=== PATIENT | male | born 1970 | race Caucasian/White ===

== ENCOUNTER → 2020-08-02 11:42 | Outpatient (CLI) | payer OTHER, SELFPAY ==
[2020-08-03 07:44] LABS: COVID19 Sendout Not Detected (Not Detect)
== END ==
PROVIDERS: Visit Provider Physician Assistant
DX: Z11.59 Encounter for screening for other viral diseases (principal)
CPT/HCPCS: 87635

== ENCOUNTER 2020-08-05 12:11 | Day surgery (SDC) | payer OTHER, SELFPAY ==
[2020-08-02 08:30] VITALS: BMI 29.9
[2020-08-05] VITALS (7 sets, daily range): BP systolic 112–151; BP diastolic 67–92; PULSE 60–76; RESP 11–18; TEMP 36.3–37.2; O2SAT 95–97; BMI 29.9
--- NOTE | 2020-08-05 13:00 | SUR.PREOP ---
Advised patient of delay in surgery. Patient verbalizes understanding and wishes to remain in waiting room for now.
[2020-08-05] MEDS: OXYMETAZOLINE NASAL SPRAY 15 ML 2 SPRAYS NASAL (14:02)
--- NOTE | 2020-08-05 14:35 | PM.PREOP ---
Pre-operative Note COVID-19 COVID-19 status: Negative Result date/Date tested (Pos, Neg/Pending): 08/02/20 Interval Note History & Physical reviewed/Exam performed by Physician: Yes Changes to H&P: No
--- NOTE | 2020-08-05 14:36 | PM.HP.1 ---
History of Present Illness History of Present Illness Date Patient Seen: 08/05/20 Time Patient Seen: 14:38 Chief complaint: Nasal airway obstruction Narrative: 50-year-old male complains of right greater than left chronic nasal obstruction with known septal deviation and inferior turbinate hypertrophy. Following discussion of the material risks benefits complications and alternatives, he elected to proceed with septoplasty and inferior turbinate reduction. Patient History Medical History Deviated septum (Acute) Hypertrophy of nasal turbinates (Acute) Sleep apnea (Acute) Tinnitus (Acute) Surgical History Hx of left knee surgery (Acute 2008) Family & Social History Social History: household members none Tobacco & Substance use: Smoking Status Former smoker alcohol intake current Substance Use Type does not use Meds Home Medications and Allergies Home Medications Medication Instructions Recorded Confirmed Type tadalafil [Cialis] 5 mg PO DAILY 08/05/20 08/05/20 History Allergies Allergy/AdvReac Type Severity Reaction Status Date / Time No Known Drug Allergies Allergy Verified 08/05/20 13:59 Review of Systems Review of Systems Narrative: Nasal obstruction ROS: Yes All systems reviewed with the patient and are negative except as otherwise documented Exam Vital Signs (past 8 hours): - 08/05/20 13:49 Temperature 97.3 F L Pulse Rate 65 Respiratory Rate 18 Blood Pressure 112/75 Pulse Oximetry 97 Oxygen Delivery Method Room Air Narrative Exam Narrative: Well-developed well-nourished male primarily right septal deviation. Heart regular rate and rhythm without murmur, lungs clear to auscultation bilaterally Assessment & Plan Assessment & Plan narrative: 1. Nasal airway obstruction 2. Septal deviation 3. Inferior turbinate hypertrophy Following discussion of the material risks benefits complications and alternatives, the patient elected to proceed with septoplasty and inferior turbinate reduction.
--- NOTE | 2020-08-05 14:40 | P.OP_ITS ---
Operative Date/Time/Diagnoses Date of procedure: 08/05/20 Time of procedure: 16:29 Pre-op diagnosis: Nasal airway obstruction, septal deviation, inferior turbinate hypertrophy Post-op diagnosis: same Procedure & Clinicians Procedure: Septoplasty, bilateral inferior turbinate reduction via intramural cautery Same procedure as scheduled: Yes Indications: 50-year-old male with the above diagnoses, incompletely managed with medical therapy, presents for the above procedures. Following discussion of the material risks benefits complications and alternatives, he elected to proceed. Surgeon: Miguel Clemons Click Yes if Unassisted: Yes Anesthesia Type: General and Local Operative Notes Findings: 3+ right bony and cartilaginous septal deviation including caudal deviation, 2+ left superior and posterior deviation. Columellar pocket created between the medial crura to help medialize the persistently deviated caudal septum to the right. Right anterior low septal spur, removed. Left greater mariama n right inferior turbinate hypertrophy. Closure Type: primary Specimen(s): none sent Estimated Blood Loss (mL): 30 Procedure in detail: Following identification and confirmation of consent as well as preoperative Afrin nasal spray, the patient was brought to the operating room suite and placed in the supine position. General endotracheal anesthesia was administered. I infiltrated the septum widely bilaterally with 1% lidocaine 1 100,000 epinephrine followed by temporary packing with cotton with Afrin and 4% lidocaine. Following sterile prep and drape, the packing was removed and I performed a right iliana transfixion incision, elevated the right mucoperichondrial and mucoperiosteal flap. I disarticulated near the bony cartilaginous junction and elevated the left mucoperiosteal flap. Deviated portions of the perpendicular plate of the ethmoid and vomer were resected. The residual quadrilateral cartilage was further straightened by trimming it inferiorly as well as reducing the maxillary crest. A 2 mm strip of cartilage paralleling the residual 1 cm dorsal and caudal strut was resected to further straighten the quadrilateral cartilage. Due to the persistent right caudal deviation of the caudal septum, I designed a columellar pocket between the medial crura and a transcutaneous tacking stitch to the caudal septum was placed. The hemitransfixion incision was closed with interrupted 5 0 chromic followed by a running 4 0 plain gut mattress suture to reapproximate the septal flaps. At case completion, Pacheco air channel silastic splints were placed bilaterally, sutured anteriorly with a single 4 0 nylon. The head of each inferior turbinate had been previously infiltrated with additional local anesthetic and a 25 gauge spinal needle was used to impale the length of the turbinate, with cautery on a setting of 15 activated on slow withdrawal over 3 passes. The turbinates were then outfractured. The procedure completed, sponge and needle counts were correct and he was extubated in the operating room and taken to recovery room in stable condition without known complication. Postoperative care: Nasal saline every hour while awake, ice to the upper lip as tolerated the 1st 24-48 hours, Vaseline or Polysporin to the nostrils at all times, begin irrigations t.i.d. beginning pod 1 if desired. Humidifier at the bedside blowing on the face. Tylenol alternating with Advil for pain control, oxycodone if necessary for breakthrough pain. Complications: none Post-operative Condition: stable Disposition: same day surgery Plan for aftercare: DC home, nasal saline every hour while awake, begin irrigations t.i.d. tomorrow if desired. Vaseline or Polysporin to the nostrils at all times. Ice to the upper lip as tolerated 24-48 hours. Tylenol alternating with ibuprofen for pain control, possible oxycodone for severe breakthrough pain. Follow-up in 1 week for splint removal.
--- NOTE | 2020-08-05 15:20 | SUR.OPER ---
Supine on padded OR bed, head on pillow, left arm padded and tucked at side, right arm on padded armboard, legs uncrossed, safety belt at thigh, tape over blanket over lower legs .
[2020-08-05] MEDS: LIDOCAINE 1% W/EPI 20 ML INJ (15:42)
[2020-08-05] MEDS: LIDOCAINE 4% SOLN 50 ML 20 ML TOP (15:43)
--- NOTE | 2020-08-05 17:07 | SUR.PHASEII ---
Report from MADALYN Romero. Pt stable A&O but wanting to rest for a bit before going home
--- NOTE | 2020-08-05 17:32 | SUR.PHASEII ---
Pt up and ambulating gait steady, getting dressed now. iv dcd and site clear. all dc instructions given and pt verbalizes understanding and rx in with instructions pt states will go get it filled on discharge.
== END 2020-08-05 17:35 | disposition home or self-care (01) ==
PROVIDERS: Referring Provider Otolaryngology; Visit Provider Otolaryngology
PROC: (CPT 30520; principal; 2020-08-05 13:45)
DX: J34.2 Deviated nasal septum (principal); J34.3 Hypertrophy of nasal turbinates; J34.89 Other specified disorders of nose and nasal sinuses; M95.0 Acquired deformity of nose; G47.30 Sleep apnea, unspecified
CPT/HCPCS: 30520; 30140; A9270; J1100; J2250; J2405; J2704; J3010